=== PATIENT | male | born 1975 | race Caucasian/White ===

== ENCOUNTER 2021-10-12 09:38 | Outpatient (CLI) | payer OTHER, SELFPAY ==
[2021-10-12 10:43] LABS: SARS-CoV-2 RNA PCR Positive (Negative)
== END 2021-10-12 09:39 | disposition home or self-care (01) ==
LOC: CHSLAB 09:44
PROVIDERS: PCP Family Medicine; Visit Provider Nurse Practitioner
DX: U07.1 COVID-19 (principal); B34.9 Viral infection, unspecified
CPT/HCPCS: C9803; U0003; U0005

== ENCOUNTER 2022-01-07 16:42 | Outpatient (CLI) | payer OTHER, SELFPAY ==
--- NOTE | ~2022-01-07 | XR_ITS ---
XR knee LT 3V DATE: 01/07/2022 17:15 INDICATION: Posteromedial left knee pain for 6 months. No known injury. TECHNIQUE: [place], AP and lateral views COMPARISON: None FINDINGS: There is mild periarticular spurring of the patellofemoral joint consistent with osteoarthr itis. Medial and lateral compartment joint spaces are well preserved. No fracture or dislocation or joint effusion. No radiopaque intra-articular loose body or chondrocalc inosis. No periosteal reaction or bone destruction. IMPRESSION: Mild patellofemoral osteoarthritis Reviewed, dictated and finalized at location A.
== END 2022-01-07 16:43 | disposition home or self-care (01) ==
LOC: CHSIMG 16:48
PROVIDERS: PCP Nurse Practitioner; Visit Provider Nurse Practitioner
DX: M25.562 Pain in left knee (principal)
CPT/HCPCS: 73562

== ENCOUNTER 2022-11-02 09:54 | Outpatient (CLI) | payer OTHER, SELFPAY ==
--- NOTE | ~2022-11-02 | MR_ITS ---
EXAMINATION: MR knee LT wo con DATE: 11/02/2022 11:04 INDICATION: Knee pain, evaluate for meniscal tear TECHNIQUE: Magnetic resonance imaging (MRI) of the left knee was performed without intravenous contra st. Sequences included axial PD-weighted FS FSE, coronal PD-weighted FSE and PD-weighted FS FSE, sagi ttal PD-weighted FSE, and sagittal T2-weighted FS FSE. COMPARISON: X-ray left knee, 12/30/2021. FINDINGS: Medial compartment: Comples tear of the meniscal body and posterior horn, with parrot beak, oblique undersurface, and api chet tears components. Severe diffuse cartilage thinning. Mild osteophytosis. Lateral compartment: Small apical tear of the lateral meniscus body. Mild osteophytosis. Patellofemoral compartment: Severe diffuse cartilage thinning along the medial facet. Near full-thickness cartilage fissure along the median ridge. Retinacula intact. Mild osteophytosis. Ligaments and tendons: ACL, PCL, MCL, and LCL are intact. Remaining flexor and extensor tendons are intact. Fluid: Moderate volume joint fluid. Moderate-sized Kaminski's cyst. Osseous/other: Mild marrow edema in the medial tibial plateau. IMPRESSION: 1. Complex tear of the meniscal body/posterior horn, with mild subjacent marrow edema in the medial t ibial plateau. 2. Small apical tear of the lateral meniscal body. 3. Moderate joint effusion. 4. Kaminski's cyst. 5. Tricompartmental osteoarthritis. Reviewed, dictated and finalized at location K. 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 Complex tear of the meniscal body/posterior horn, with mild subjacent marrow edema in the medial tibial plateau. 2. Small apical tear of the lateral meniscal body. 3. Moderate joint effusion. 4. Kaminski's cyst. 5. Tricompartmental osteoarthritis.
== END 2022-11-02 09:55 | disposition home or self-care (01) ==
PROVIDERS: PCP Nurse Practitioner; Visit Provider Orthopaedic Surgery
DX: S63.242A Subluxation of distal interphalangeal joint of right middle finger, initial encounter (principal); S83.282A Other tear of lateral meniscus, current injury, left knee, initial encounter; M25.462 Effusion, left knee; M71.22 Synovial cyst of popliteal space [Baker], left knee; M17.12 Unilateral primary osteoarthritis, left knee
CPT/HCPCS: 73721

== ENCOUNTER 2022-12-02 00:02 | Day surgery (SDC) | payer OTHER, SELFPAY ==
[2022-11-19 14:38] VITALS: BMI 34.0
--- NOTE | 2022-11-19 14:40 | SUR.PREOP ---
Report to the Outpatient Waiting Room, entrance under the green pavilion located off [facility], at time _0830 on date _12/02/22 . Planned Procedure Time: 1030 . Time changes happen often and if your time is changed the preop area will call you the afternoon before. - You and your visitor will be asked to self-screen and do not enter if you have any COVID symptoms. - Only one visitor is requested with a max of two and NO children visitors are allowed at this time. - The patient visitor may be requested to leave or wait in car when not with patient due to distancing restrictions. - A mask is optional within the hospital at this time. Patients may have clear liquids (water, carbonated beverages, clear teas, apple juice) until 3 hours prior to surgery with a maximum of 20 ounces. - No food from midnight until time of surgery - Infants may have breast milk until 4 hours before surgery, infant formula 6 hours prior to surgery. - Children will be allowed to drink immediately following surgery. If applicable, please bring a bottle or sippy cup to assist with drinking. Juice, water, soda, and popsicles are readily available. For infants on formula, please bring formula the day of surgery. Pacifiers are allowed. Take the following medications with a SIP of water the morning of surgery: ____N/A DO NOT STOP ANY OF YOUR OTHER PRESCRIPTION MEDICATIONS PRIOR TO SURGERY ?EXCEPT THE FOLLOWING Medications to discontinue per physician ____N//A Date to take last dose__N/A Please no make-up, nail croatian, hairspray, perfume, deodorant, or body powder the day of surgery. No jewelry (including any body piercings) or valuables the day of surgery, leave them at home. Please take a shower or bath the night before, or the morning of, surgery with an antibacterial soap. Wear comfortable, loose fitting clothing. Children are encouraged to wear pajamas. - Jewelry must be removed prior to entering the operating room. Rings and piercings that are not removed may be cut off. - The hospital will not accept responsibility for valuables. - Please leave all valuables, including medications, at home the day of surgery. If you are going home after surgery, a licensed petroleum transport driver must drive you home. - NO public transportation without another adult if you receive anesthesia. - We recommend that an adult stay with you for 24 hours following discharge. - We also recommend that you do not drive, make important decision, drink alcoholic beverages, or take any drugs that were not prescribed by your health care provider for at least 24 hours after your discharge time. For Pediatric surgeries, we recommend two adults accompany the child home. Follow any additional instructions given to you from your surgeon. If you or anyone in your household have experienced Covid symptoms in the past week, please notify your surgeon or the nurse liaison at the phone number below for possible testing. Telephone instructions given to _JIA MULLEN and asked if any additional questions and then verbalized understanding. Patient advised to call surgeon office or pre surgery nurse liaison [phone] if any additional questions.
--- NOTE | 2022-11-29 14:24 | PM.IMHP ---
H&P: HPI History of Present Illness Date/Time: 11/29/22 14:24 Chief Complaint: Left knee pain Narrative: 47 yo man with LT knee pain. Unrelieved by therapy, injections, activity modification. MRI shows meniscus tear and chondromalacia with synovitis. Review of Systems Constitutional: Constitutional: Denies fever(s) Eyes: Eyes: Denies blurry vision ENT: Reports Normal hearing present Cardiovascular: Cardiovascular: Denies chest pain and Denies dyspnea Respiratory: Respiratory: Denies dyspnea and Denies wheezing Gastrointestinal: Gastrointestinal: Denies abdominal pain Genitourinary: Genitourinary: Denies urinary urgency Musculoskeletal: Musculoskeletal: Reports as per HPI and Denies numbness Integumentary/Breasts: Skin/Breast: Denies changing lesions and Denies sores Neurologic: Reports Normal hearing present, Denies behavioral changes, Denies confusion, Denies numbness and Denies convulsions Psychiatric: Psychiatric: Denies behavioral changes, Denies confusion and Denies hallucinations Endocrine: Endocrine: Denies heat intolerance Hematologic/Lymphatic: Hematologic/Lymphatic: Denies easy bleeding Allergic/Immunologic: Allergic/Immunologic: Denies wheezing PMFSH Past Medical History Medical History Acute medial meniscus tear of left knee Chondromalacia patellae, 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 Social History Social History Smoking status: Never smoker Alcohol intake: current Drinks per week: 5 Alcohol use details: on weekends Substance use: never Substance use type: does not use Living arrangements: with family Occupation/Education: occupation 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[place] [id number] Gender identity (if verbalized by the patient): Male Spiritual care concerns: No Meds Home Medications and Allergies Home Medications Medication Instructions Recorded Confirmed Type No Home Medications 01/21/22 11/19/22 History Allergies Allergy/AdvReac Type Severity Reaction Status Date / Time No Known Allergies Allergy Verified 11/19/22 14:24 Exam Const: General: healthy appearing; No in distress or confusion Orientation/consciousness: oriented to person, oriented to place, oriented to time and No confusion HENMT: Head: normal to inspection, normocephalic and atraumatic Eyes: Conjunctivae: conjunctivae normal Sclera: sclerae normal Neck: Neck: supple and nontender Resp: Effort & Inspection: normal respiratory effort and no audible wheezes Cardio: Rate: regular rate Rhythm: regular rhythm Skin: General skin exam: no rashes or lesions noted Neuro: General: oriented to person, oriented to place, oriented to time and No confusion Extrem: Right upper extremity: normal to inspection Left upper extremity: normal to inspection Right lower extremity: hip/thigh Details: normal ROM; no tenderness, knee Details: normal to inspection, normal ROM, knee ligament exam normal Details: anterior drawer test normal, posterior drawer test normal, valgus stress test normal, varus stress test normal and Noreen?s test normal and Elliott's Test Details: negative medially and laterally; no tenderness and no swelling and foot Details: normal capillary refill, toes with normal ROM, vascular exam Details: dorsalis pedis pulse present and motor-sensory exam Details: light-touch normal; no tenderness; no edema Left lower extremity: normal to inspection, normal capillary refill, hip/thigh Details: normal ROM; no tenderness, knee Details: tenderness Location: of the patella, of the medial joint line and of the infrapatellar area, swelling Location: of the infrapatellar area (mild), abnormal ROM (active extension -10, flexion 110), knee ligament exam normal Details: anterior drawer test normal, posterior drawer test normal, valgus stress test
[2022-12-02] VITALS (7 sets, daily range): BP systolic 122–158; BP diastolic 72–86; PULSE 63–76; RESP 10–16; TEMP 36.2–36.4; O2SAT 95–100
--- NOTE | 2022-12-02 07:08 | WPDHPUPDATE1 ---
History and Physical Update Update Date/Time: 12/02/22 07:08 History and Physical has been reviewed, including an updated exam of the patient. There are NO changes in the patient's condition. Risks, benefits, and alternatives have been discussed and questions answered. Patient agrees to proceed with procedure.
[2022-12-02] MEDS: LACTATED RINGERS 1,000 ML 30 ML IV CONT (07:51)
[2022-12-02] MEDS: ACETAMINOPHEN 500 MG TABLET 1000 MG PO (07:51)
[2022-12-02] MEDS: KETOROLAC 15 MG/ML VIAL (*BKC) IV PUSH (08:17)
--- NOTE | 2022-12-02 08:17 | P.PNAN_ITS ---
Anes - Initial Pre Proc Eval Procedure: Operation Date: 12/02/22 09:30 Proposed Procedures p Left Knee Arthroscopy, Debride Meniscus, Synovectomy, Chondroplasty, Proceed As Indicated - Brian Hernandez MD Date/Time: 12/02/22 08:17 Surgeon: Brian Hernandez MD Pre Op Diagnosis: left knee pain, meniscus tear,chondromylacia Patient Data Age: 47 Gender: M Height: 1.83 m Weight: 119.6 kg Last Vital Signs Temp 36.4 C L 12/02/22 08:13 Pulse 65 12/02/22 08:13 Resp 16 12/02/22 08:13 BP 158/81 H 12/02/22 08:13 Pulse Ox 100 12/02/22 08:13 O2 Del Method Room Air 12/02/22 08:13 Allergies Allergy/AdvReac Type Severity Reaction Status Date / Time No Known Allergies Allergy Verified 12/02/22 07:41 Home Medications Medication Instructions Recorded Confirmed Type ibuprofen 800 mg tablet 800 mg PO TID PRN pain #30 tabs 12/02/22 Rx ondansetron 8 mg disintegrating 8 mg PO Q8H PRN nausea and 12/02/22 Rx tablet vomiting #10 tabs oxycodone-acetaminophen 7.5 mg-325 1 tablet PO Q4H PRN pain #30 tabs 12/02/22 Rx mg tablet (Percocet) sennosides 8.6 mg-docusate sodium 1 tab-cap PO BID PRN constipation 12/02/22 Rx 50 mg tablet (Senna with Docusate #20 tabs Sodium) Patient hx anesthesia problems: none Family hx anesthesia problems: none Results Review: All pre-operative results and documents have been reviewed as part of the pre- operative evaluation. 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 [employer] Gender identity (if verbalized by the patient): Male Spiritual care concerns: No Anes - Eval Final PreProcedure Day of Procedure 12/02/22 08:17 Patient weight: obese Heart: regular rate and rhythm Lungs: clear to auscultation Airway: Mallampati scale class II Neurological: alert and oriented Last oral intake: >/= 8 hours ASA classification: II Emergent: no Anesthetic plan: proceed Anesthesia type and monitoring: general GIVS and standard monitoring Results Review: All pre-operative results and documents have been reviewed as part of the pre- operative evaluation. Informed Consent: The patient's anesthetic plan and its attendant risks and benefits were discussed with the patient/family/POA. Questions were solicited and answers provided to the satisfaction of the patient/family/POA.
[2022-12-02] MEDS: ceFAZolin 2 GM/D5W 50 ML 2 GM/50 ML BAG IVPB (08:43)
[2022-12-02] MEDS: BUPivacaine HCL 0.25% PF 10 ML VIAL INFILTRATE (09:08)
[2022-12-02] MEDS: BUPIVACAINE/EPINEPHRINE 0.5% 10 ML VIAL INFILTRATE (09:09)
--- NOTE | 2022-12-02 10:00 | W.PM.PROC2 ---
Procedure Note - Detailed Date of Procedure 12/02/22 Pre-op Diagnosis left knee pain, meniscus tear, chondromalacia Post-op Diagnosis Same Procedure Performed Left knee arthroscopy partial medial meniscectomy, synovectomy, chondroplasty Surgeon Brian Hernandez MD Anesthesia General Indications 47-year-old with left knee pain. MRI demonstrates medial meniscus tear, chondromalacia and synovitis. Failed conservative treatment with cortisone injection, physical therapy, bracing and activity modification. Presents for operative treatment. Findings Extensive synovitis involving the medial and lateral aspect of the patellofemoral articulation, enlarged medial plica, hypertrophic lateral plica and hypertrophic anterior fat pad. Complex degenerative type tear posterior horn medial meniscus. Grade 2 chondromalacia patella, grade 4 chondromalacia femoral trochlea, grade 3-4 chondromalacia medial femoral condyle. ACL, PCL, lateral meniscus intact. Multiple chondral loose bodies in the patellofemoral and medial compartments. Description of Procedure Informed consent given by patient. Operative extremity marked in preoperative holding area. Patient received intravenous antibiotics. Patient brought to operating room and underwent general anesthetic by anesthesia team. Positioned supine on operating room table. Left leg placed into a posterior thigh leg borden. Foot of the table dropped to 90? and right leg padded out of the field. Time-out performed confirming patient, site of surgery and plan. Left knee prepped and draped in usual sterile surgical fashion using ChloraPrep skin solution. Standard arthroscopic portals made by using a 11 blade knife for the anterior lateral portal 1st. Capsule penetrated bluntly. Camera and inflow started. The below operative findings noted. Intra-articular visualization used to position the anterior medial portal using 22 gauge spinal needle. A 11 blade knife used for the skin and blunt penetration of the capsule. 4.7 millimeter arthroscopic shaver introduced and partial medial meniscectomy of the loose and torn portion performed. Edge of meniscus completed with arthroscopic Wand. multiple loose chondral pieces suctioned and removed with the shaver. Arthroscopic Wand used to perform chondroplasty of the patellofemoral articulation and the medial femoral condyle. Shaver reintroduced and a Major synovectomy performed of the anterior fat pad and extensive synovium as well as medial and lateral plica, medial and lateral compartment synovium. Bleeding points coagulated with Wand. Knee inspected, no loose pieces noted. 1 liter of irrigant infused and suction out. Arthroscopic cannulas removed. Skin closed with 4 nylon interrupted suture. Local anesthetic with 0.25% Marcaine. Sterile dressing applied. Patient awoken from anesthesia, extubated and taken to recovery room in stable condition. All sponge needle and instrument counts correct at the end of the case. Implants None Estimated Blood Loss 5 Tourniquet Time 0 Drains No Packing No Pathology None sent Complications None Condition Stable Disposition PACU [facility] Billing Surgery - Charge Forward: Surgery Billing ([id number], [id number])
[2022-12-02] MEDS: fentaNYL CITRATE INJ (*CRX) 100 MCG/2 ML VIAL 25 MCG IV PUSH ×4 (10:04→10:20)
[2022-12-02] MEDS: oxyCODONE HCL (*CRX) 5 MG TAB IR PO (11:13)
== END 2022-12-02 12:00 | disposition home or self-care (01) ==
PROVIDERS: PCP Nurse Practitioner; Visit Provider Orthopaedic Surgery
PROC: (CPT 29870; principal; 2022-12-02 09:30)
DX: M23.322 Other meniscus derangements, posterior horn of medial meniscus, left knee (principal); M22.42 Chondromalacia patellae, left knee; M67.52 Plica syndrome, left knee; M65.862 Other synovitis and tenosynovitis, left lower leg
CPT/HCPCS: 29881; 29876; A9270; J0690; J1100; J1885; J2250; J2405; J2704; J3010; J7120

== ENCOUNTER 2022-12-09 09:13 | Outpatient (CLI) | payer OTHER, SELFPAY ==
--- NOTE | ~2022-12-09 | XR_ITS ---
Left Knee Technique: AP, lateral, and sunrise views were obtained. Clinical History: Status post meniscal surgery Findings: No fracture or dislocation is seen. Osseous alignment is anatomic. Joint spaces are preserv ed without degenerative or erosive change. Soft tissues are unremarkable. No joint effusion is seen. Impression: Unremarkable left knee radiographs. Reviewed, dictated and finalized at location . REMOVAL/PLOWING Impression: Unremarkable left knee radiographs.
== END 2022-12-09 09:14 | disposition home or self-care (01) ==
LOC: CHSIMG 09:15
PROVIDERS: PCP Nurse Practitioner; Visit Provider Orthopaedic Surgery
DX: M25.562 Pain in left knee (principal)
CPT/HCPCS: 73562

== ENCOUNTER 2023-02-28 01:43 | Day surgery (SDC) | payer OTHER, SELFPAY ==
[2023-02-18 09:06] VITALS: BMI 35.2
[2023-02-28 06:52] VITALS: BP 137/82; PULSE 60; RESP 18; TEMP 36.3; O2SAT 98; BMI 35.6
[2023-02-28] MEDS: LACTATED RINGERS 1,000 ML 150 ML IV CONT (07:01)
--- NOTE | 2023-02-28 07:29 | WPDANESEPPF ---
Anes - Initial Pre Proc Eval Procedure: Operation Date: 02/28/23 08:00 Proposed Procedures p Screening Colonoscopy - Glen Eddy MD Date/Time: 02/28/23 07:29 Surgeon: Glen Eddy MD Pre Op Diagnosis: neoplasm screening Patient Data Age: 47 Gender: M Height: 1.83 m Weight: 119.1 kg Last Vital Signs Temp 97.4 F L 02/28/23 06:52 Pulse 60 02/28/23 06:52 Resp 18 02/28/23 06:52 BP 137/82 02/28/23 06:52 Pulse Ox 98 02/28/23 06:52 O2 Del Method Room Air 02/28/23 06:52 Allergies Allergy/AdvReac Type Severity Reaction Status Date / Time No Known Allergies Allergy Verified 02/28/23 06:48 Home Medications Medication Instructions Recorded Confirmed Type ibuprofen 800 mg tablet 800 mg PO TID PRN pain #30 tabs 12/17/22 02/28/23 Rx Patient hx anesthesia problems: none Family hx anesthesia problems: none Results Review: All pre-operative results and documents have been reviewed as part of the pre-operative evaluation. 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 Informed Consent: The patient's anesthetic plan and its attendant risks and benefits were discussed with the patient/family/POA. Questions were solicited and answers provided to the satisfaction of the patient/family/POA.
--- NOTE | 2023-02-28 07:48 | PM.HPGS ---
History of Present Illness History of Present Illness Consent: Risks, benefits, and alternatives have been discussed and questions answered. Patient agrees to proceed with procedure. Chief complaint: neoplasm screening Narrative: Timothy Carter is a 47 year old male Presents for screening colonoscopy. Patient's current weight appetite and bowel movements are normal. Patient denies abdominal pain. He has had no bleeding. Family history noncontributory. Previous colonoscopy 12 years ago was unremarkable. Review of Systems Review of Systems: Review of systems noncontributory. 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 [employer] Gender identity (if verbalized by the patient): Male Spiritual care concerns: No Meds Home Medications and Allergies Home Medications Medication Instructions Recorded Confirmed Type ibuprofen 800 mg tablet 800 mg PO TID PRN pain #30 tabs 12/17/22 02/28/23 Rx Allergies Allergy/AdvReac Type Severity Reaction Status Date / Time No Known Allergies Allergy Verified 02/28/23 06:48 Vital Signs Vital Signs - 24 hr 02/28/23 06:52 Temperature 97.4 F L Pulse Rate 60 Respiratory Rate 18 Blood Pressure 137/82 Pulse Oximetry 98 Oxygen Delivery Room Air Exam Narrative: Physical exam reveals patient to be alert. Vital signs stable. HEENT exam is unremarkable. Patient is anicteric. Lungs are clear to auscultation and percussion. Heart is without murmur or extra sounds. Abdomen bowel sounds are present soft nontender without organomegaly. Digital external rectal exam is normal. Assessment and Plan Assessment and plan (1) Encounter for screening colonoscopy: Code(s): Z12.11 - Encounter for screening for malignant neoplasm of colon Status: Acute Assessment and Plan: Patient presents for screening colonoscopy. He appears to be at average risk for colon polyps. Further recommendations will be given after endoscopy.
[2023-02-28] MEDS: SIMETHICONE ORAL SUSPENSION 20 MG/0.3 ML 30 ML BOTTLE 0.6 ML IRRIGATION (08:07)
[2023-02-28 08:20] VITALS: BP 109/69; PULSE 68; RESP 16; O2SAT 96
[2023-02-28 08:30] VITALS: BP 123/79; PULSE 64; RESP 18; O2SAT 96
[2023-02-28 08:40] VITALS: BP 127/88; PULSE 62; RESP 18; O2SAT 97
== END 2023-02-28 08:49 | disposition home or self-care (01) ==
PROVIDERS: PCP Nurse Practitioner; Visit Provider Internal Medicine Gastroenterology
PROC: 0DJD8ZZ Inspection of Lower Intestinal Tract, Via Natural or Artificial Opening Endoscopic (ICD-10-PCS; CPT 45378; principal; 2023-02-28 08:00)
DX: Z12.11 Encounter for screening for malignant neoplasm of colon (principal); K64.8 Other hemorrhoids
CPT/HCPCS: 45378; J2704; J7120

== ENCOUNTER 2024-11-09 17:06 | Outpatient (CLI) | payer OTHER, SELFPAY ==
--- NOTE | ~2024-11-09 | XR_ITS ---
EXAMINATION: XR knee RT 3V DATE: 11/09/2024 17:47 INDICATION: Right knee pain. TECHNIQUE: 3 views of right knee were obtained. COMPARISON: None. FINDINGS: Alignment is normal. No fracture. There is mild tricompartmental osteoarthritis. There is a small knee joint effusion. IMPRESSION: 1. Mild right knee osteoarthritis. 2. Small right knee joint effusion. Reviewed, dictated and finalized at location A. 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
[2024-11-09 17:48] LABS: Hemoglobin A1C 5.2 % (<5.7)
[2024-11-09 18:41] LABS: Alanine Aminotransferase 82 U/L (16-63); Albumin Level 4.3 g/dL (3.4-5.0); Alkaline Phosphatase 53 U/L (46-116); Anion Gap 9 mmol/L (4-12); Aspartate Amino Transferase 44 U/L (15-37); Blood Urea Nitrogen 14 mg/dL (7-18); Calcium 9.2 mg/dL (8.5-10.1); Carbon Dioxide 29 mmol/L (21-32); Chloride 102 mmol/L (98-108); Cholesterol 207 mg/dL (0-200); Estimated Glomerular Filt Rate > 60; Glucose 88 mg/dL (70-99); HDL Direct 36 mg/dL (40-60); LDL Cholesterol Calculated 123 mg/dL (<130); Osmolality Calculated 289 mOsm/kg (285-295); Potassium 4.5 mmol/L (3.5-5.1); Sodium 140 mmol/L (136-145); Total Protein 7.1 g/dL (6.4-8.2); Triglycerides 239 mg/dL (0-150); Uric Acid 6.2 mg/dL (3.5-7.2)
== END 2024-11-09 17:07 | disposition home or self-care (01) ==
LOC: CHSLAB 17:09
PROVIDERS: PCP Nurse Practitioner; Visit Provider Nurse Practitioner
DX: R73.01 Impaired fasting glucose (principal); E78.2 Mixed hyperlipidemia; M10.9 Gout, unspecified; M25.561 Pain in right knee; M17.11 Unilateral primary osteoarthritis, right knee; M25.461 Effusion, right knee
CPT/HCPCS: 36415; 73562; 80053; 80061; 83036; 84550